=== PATIENT | female | born 1945 | race American Indian/Alaskan Native ===

== ENCOUNTER 2017-04-19 11:36 | Outpatient (CLI) | payer OTHER ==
--- NOTE | 2017-04-19 12:38 | XRay Report ---
CHEST 2 VIEWS INDICATION: Cough for 6 months. COMPARISON: None similar. FINDINGS: PA and lateral chest radiographs demonstrate normal cardiomediastinal silhouette. Clear left lung. Subtle hazy right pleural effusion blunting the costophrenic angle not entirely excluded. No CHF. Demineralized bones with few degenerative changes. Aortic atherosclerotic calcifications. CONCLUSION: Subtle right pleural effusion questioned, as described. Please also correlate clinically and followup with prior relevant imaging, if available. Thank you for the opportunity to participate in this patient's care.
--- NOTE | 2017-04-20 08:48 | Mammography Report ---
BILATERAL DIGITAL SCREENING MAMMOGRAM with CAD: 04/19/17 11:36:00 CLINICAL: Baseline screening. COMPARISON:None. FINDINGS: The breasts are almost entirely fatty. No mass, architectural distortion or suspicious calcifications. IMPRESSION: No mammographic evidence of malignancy. BI-RADS CATEGORY: 1 - - Negative RECOMMENDATION: Routine mammographic screening in one year. COMMENT: Patient follow-up letters are generated by our smartclip application.
== END 2017-04-19 11:37 | disposition home or self-care (01) ==
LOC: MAMMO 11:36
PROVIDERS: ATTEND Internal Medicine
DX: Z12.31 Encounter for screening mammogram for malignant neoplasm of breast (principal); R05 Cough; I70.0 Atherosclerosis of aorta
CPT/HCPCS: 71020; G0202; 77067